=== PATIENT | female | born 1960 | race Two or more races ===

== ENCOUNTER 2023-09-21 14:50 | Emergency (ER) | payer OTHER ==
[~2023-09-21] VITALS: Ht 154.9 cm; Wt 140.2 kg
[2023-09-21] MEDS ORDERED: AVALIDE 300-121 EACH PO (16:41)
[2023-09-21] MEDS ORDERED: SPRIVA (16:41)
[2023-09-21] MEDS ORDERED: ADVAIR 100-501 EACH (16:41)
[2023-09-21] MEDS ORDERED: CARDIZEM CD180 M1 PO (16:42)
== END 2023-09-21 21:41 | disposition home or self-care (01) ==
LOC: ER 14:50
DX: I10 Essential (primary) hypertension (principal); J02.9 Acute pharyngitis, unspecified

== ENCOUNTER 2024-08-05 10:35 | Outpatient (CLI) | payer OTHER ==
[~2024-08-05 10:35] MED LIST: ADVAIR 100-501 EACH; ADVAIR HFA 230/12 GM IH; AVALIDE 300-121 EACH PO; CARDIZEM CD180 M1 PO; FLUTICASONE-SAL12 G2 IH; SINGULAIR10 MG PO; SPIRIVA RESPIMAT4 GM IH; SPRIVA
== END 2024-08-05 10:46 | disposition home or self-care (01) ==
LOC: TOM 10:35
PROVIDERS: ATTEND Internal Medicine Pulmonary Disease
DX: J45.40 Moderate persistent asthma, uncomplicated (principal); J18.0 Bronchopneumonia, unspecified organism

== ENCOUNTER 2024-08-19 20:31 | Emergency (ER) | payer OTHER ==
[~2024-08-19] VITALS: Ht 154.9 cm; Wt 138.8 kg
[2024-08-19] MEDS ORDERED: PEPCID AC20 MG (21:27)
[2024-08-19] MEDS ORDERED: PREVACID15 M1 (21:27)
[2024-08-20] MEDS ORDERED: KETOROLAC TROMETHAMINE 60 MG VIAL IM STA (02:34)
[2024-08-20] MEDS ORDERED: TRIAMCINOLONE ACETONIDE 40 MG/ML VIAL IM STA (02:35)
[2024-08-20] MEDS ORDERED: MELOXICAM15 MG PO (02:50)
== END 2024-08-20 03:21 ==
LOC: ER 20:33
DX: M25.562 Pain in left knee (principal); J45.909 Unspecified asthma, uncomplicated; I10 Essential (primary) hypertension

== ENCOUNTER 2024-09-17 08:14 | Outpatient (CLI) | payer OTHER ==
[~2024-09-17 08:14] MED LIST changes: +MELOXICAM15 MG PO; +PEPCID AC20 MG; +PREVACID15 M1
== END 2024-09-17 08:31 | disposition home or self-care (01) ==
LOC: MRI 08:14
PROVIDERS: ATTEND Physical Medicine & Rehabilitation
DX: M25.562 Pain in left knee (principal)
CPT/HCPCS: 73721